=== PATIENT | female | born 2000 ===

== ENCOUNTER 2023-08-24 12:28 | Outpatient (CLI) | payer OTHER | END 2023-08-24 12:32 | disposition home or self-care (01) | LOC: SONOGRAMA 12:28 | PROVIDERS: ATTEND Pathology Anatomic Pathology & Clinical Pathology | DX: D44.0 Neoplasm of uncertain behavior of thyroid gland (principal); D34 Benign neoplasm of thyroid gland; E07.9 Disorder of thyroid, unspecified ==